=== PATIENT | male | born 1960 | race Caucasian/White ===

== ENCOUNTER → 2017-10-31 | Outpatient (CLI) | payer BC ==
--- NOTE | 2017-10-31 11:16 | US ---
EXAMINATION TYPE: US abdomen complete DATE OF EXAM: 10/31/2017 COMPARISON: NONE CLINICAL HISTORY: 57-year-old male R10.13 Rt lower quad abd pain; patient stated has midline abdomina l pain that radiates laterally, with or without food; symptoms x 1 year Technique: Multiple sonographic images of the abdomen are obtained. FINDINGS: Liver Length: 15.3 cm Gallbladder Wall: 3.3 mm CBD: 0.4 cm Spleen: 10.1 cm Right Kidney: 10.7 x 6.3 x 5.4 cm Left Kidney: 11.2 x 5.4 x 5.7 cm Pancreas: Tail obscured by overlying bowel gas. Otherwise, grossly unremarkable. Liver: Normal homogeneous echotexture. No focal lesion. Gallbladder: No abnormal gallbladder distention, shadowing calculi, or pericholecystic fluid. The ga llbladder wall is borderline thickened at 3.3 mm. Comet tail artifact noted anterior fundal wall sugg esting adenomyomatosis. With mild gallbladder wall thickening Evidence for sonographic Daniel's sign: No CBD: wnl Spleen: wnl Right Kidney: Either some prominent vascular reflectors versus vascular calcifications in the upper p ole. No hydronephrosis. Left Kidney: No hydronephrosis. Lower IVC: wnl Abd Aorta: size is wnl IMPRESSION: Borderline gallbladder wall thickening and some comet tail artifacts. Findings suggest adenomyomatosi s. No evidence for cholelithiasis or acute cholecystitis.
== END | disposition home or self-care (01) ==
LOC: RADUSWWP 08:12
PROVIDERS: ATTEND Internal Medicine
DX: K82.8 Other specified diseases of gallbladder (principal); R10.31 Right lower quadrant pain
CPT/HCPCS: 76700